=== PATIENT | female | born 1965 | race Caucasian/White ===

== ENCOUNTER 2019-11-16 15:04 | Emergency (ER) | payer OTHER, SELFPAY ==
[2019-11-16 15:05] VITALS: BP 159/101; PULSE 77; RESP 17; TEMP 36.4; O2SAT 96; BMI 50.4
[2019-11-16 15:19] VITALS: BP 182/79; PULSE 70; RESP 16
--- NOTE | 2019-11-16 15:34 | ED_ITS ---
HPI - Back Pain/Injury General: Chief Complaint: Back Pain/Injury Stated Complaint: back pain Time Seen by Provider: 11/16/19 15:34 Source: patient Mode of arrival: ambulatory Limitations: no limitations History of Present Illness: HPI Narrative: Patient is 54-year-old female who presents to ED today with complaints of lower and right-sided back pain that initially began a week ago; patient states back pain seems to be intermittent and seems to be worse with certain positions; patient states sometimes with walking she will get a very sharp pain that almost takes her to her knees; she does not have any chest pain, shortness of breath, lightheadedness, dizziness; pain seems to radiate down into her right buttock; she denies numbness, tingling, loss of sensation, weakness to her lower extremities; she denies urinary retention or bowel incontinence MD elicited complaint: back pain Onset (ago): day(s) Timing: intermittent Quality: sharp Location: lumbar spine and right lower back Radiation: buttocks Exacerbating factors: movement and deep breaths Associated symptoms: Reports no associated symptoms PFSH ED PFSH: Statuses (acute, chronic, etc) shown below reflect problem list status as previously entered and may not be historically accurate Social History Smoking and tobacco status: never smoked Course Vital Signs: Vital signs: Vital Signs Temperature 97.5 F L 11/16/19 15:05 Pulse Rate 74 11/16/19 16:22 Respiratory Rate 20 H 11/16/19 16:22 Blood Pressure 149/83 11/16/19 16:22 Pulse Oximetry 94 11/16/19 16:22 Discharge Plan Discharge Patient Disposition: Home, Self-Care Clinical Impression: Strain of lumbar region Qualifiers: Encounter type: initial encounter Qualified Code(s): S39.012A - Strain of muscle, fascia and tendon of lower back, initial encounter Condition: Stable Prescriptions: New prednisone 10 mg tablet 60 mg PO DAILY 5 Days Qty: 30 RF: 0 tramadol 50 mg tablet 50 mg PO Q6H PRN (Reason: pain) Qty: 10 RF: 0 No Action carisoprodol 350 mg Tablet 350 mg PO QPM RF: 0 celecoxib 200 mg Capsule 200 mg PO DAILY RF: 0 cyclobenzaprine 10 mg Tablet 10 mg PO TID PRN (Reason: Spasms) RF: 0 warfarin 6 mg Tablet See Rx Instructions .ROUTE .COMPLEX RF: 0 omeprazole 10 mg Capsule,Delayed Release(Dr/Ec) 10 mg PO DAILY RF: 0 montelukast 10 mg Tablet 10 mg PO QPM RF: 0 gvbnqzuhhq-jvbwbftaf-jhgoondlj 40-10-25 mg Tablet 1 tab PO DAILY RF: 0 Discharge Orders: Discharge Order (Routine); Ordered 11/16/19 Ordered By: Jade Ferrer Referrals: Sherri Samuel MD [Primary Care Provider] - Discharge Diet: Usual diet Discharge Activity: Increase activity as tolerated Activity Restrictions/Additional Instructions: Follow up with primary care for continued pain. Coding Level of Care Code ED Glass Designer for Gabriela Parson
[2019-11-16 16:22] VITALS: BP 149/83; PULSE 74; RESP 20; O2SAT 94
[2019-11-16] MEDS: ketorolac 60 mg/2 mL INJ IM (16:41)
[2019-11-16] MEDS: dexamethasone 10 mg/mL INJ 8 MG IM (16:41)
[2019-11-16 17:13] VITALS: BP 163/90; PULSE 78; RESP 18; TEMP 36.7; O2SAT 96
== END 2019-11-16 17:05 | disposition home or self-care (01) ==
PROVIDERS: Emergency Provider Physician Assistant; Family Provider Family Medicine; PCP Family Medicine
DX: S39.012A Strain of muscle, fascia and tendon of lower back, initial encounter (principal); Z79.01 Long term (current) use of anticoagulants; X58.XXXA Exposure to other specified factors, initial encounter
CPT/HCPCS: 96372; 99281; J1100; J1885

== ENCOUNTER 2019-11-22 15:16 | Emergency (ER) | payer OTHER, SELFPAY ==
[2019-11-22 15:20] VITALS: BP 177/115; PULSE 81; RESP 20; TEMP 36.4; O2SAT 94; BMI 52.0
--- NOTE | 2019-11-22 15:28 | ED_ITS ---
Entered by Concepcion Nicholas, acting as scribe for Pina Garcia MD, [facility] [place] Nov 22, 2019 15:16 HPI - Weakness General: Chief complaint: Weakness Stated complaint: weakness Time Seen by Provider: 11/22/19 15:29 Source: patient and RN notes reviewed Mode of arrival: ambulatory Limitations: no limitations History of Present Illness: HPI Narrative: 54 yo female presents to ED with complaints of weakness. She said she had an episode of heavy shoulders, weakness in her upper half, sweating, and nauseated. She said this lasted approximately 30 minutes. Her dad has history of heart problems. She denies any other symptoms. The patient takes a blood thinner for a blood clot in her L leg. The patient was in the ER last week for back pain and spasms. Complaint: generalized weakness Onset (ago): minute(s) (30) Duration: improved Location: other (upper half) Migration: none Severity: moderate Quality: aching and other (heaviness) Relieving factors: none Exacerbating factors: none Associated symptoms: Reports chest pain and nausea; Denies chills, dysuria, fever(s) or headache(s) Review of Systems General: Reports: 10 or more systems reviewed and unremarkable except in HPI and below Const: Denies: fever, chills or body aches Eyes: Reports: blind spots; Denies: change in vision or blurry vision ENMT: Denies: throat pain, enlarged tonsils, painful swallowing, hoarseness, mouth pain or swelling of lips/tongue Card: Reports: chest pain; Denies: palpitations, irregular heart rhythm, edema or swelling of feet/ankles Resp: Denies: shortness of breath, productive cough or non-productive cough GI: Reports: nausea : Denies: flank pain, difficulty urinating, painful urination, urinary frequency, urinary urgency or urinary hesitancy Musc: Reports: extremity pain (left shoulder), joint pain (left shoulder) and limited range of motion; Denies: neck pain, back pain or extremity swelling Skin/Breast: Denies: rash, itching or redness Neuro: Denies: headache, numbness in extremities or weakness in extremities Endo: Denies: excessive urination, excessive thirst or tired all the time PFSH ED PFSH: Statuses (acute, chronic, etc) shown below reflect problem list status as previously entered and may not be historically accurate Social History Smoking and tobacco status: never smoked Physical Exam Const: COMMON NORMALS: no apparent distress, average body habitus, oriented x3, no limitations, healthy appearing, alert and well nourished HENMT: COMMON NORMALS: normocephalic, head/scalp atraumatic and moist oral mucous membranes HEAD & SCALP: normocephalic and atraumatic Eye: COMMON NORMALS: PERRL, EOMs intact bilaterally, conjunctivae normal and no scleral icterus CONJUNCTIVA: Yes conjunctivae normal PUPIL: Yes PERRL Neck/C-Spine: COMMON NORMALS: full ROM, supple, no meningeal signs, no JVD and no carotid bruits Chest: COMMONS NORMALS: inspection of chest normal and palpation of chest normal Resp: COMMON NORMALS: normal respiratory effort, no retractions, no use of accessory muscles, clear to auscultation bilaterally and percussion normal AUSCULTATION: clear to auscultation bilaterally PERCUSSION: percussion normal Cardio: COMMON NORMALS: no JVD, regular rate, regular rhythm, S1 normal heart sound, S2 normal heart sound, no gallops, no clicks, no murmurs, no rub and peripheral pulses 2+ throughout RATE: regular rate RHYTHM: regular rhythm HEART SOUNDS: S1 normal and S2 normal PERIPHERAL PULSES: pulses 2+ throughout GI: COMMON NORMALS: normal to inspection, nondistended, normoactive bowel sounds, soft to palpation, non-tender, no hepatosplenomegaly, no masses and no bruits PALPATION: Yes soft and Yes no hepatosplenomegaly : COMMON NORMALS: Yes no CVA tenderness BLADDER/KIDNEY EXAM: Yes no CVA tenderness Back/Pelvis: COMMON NORMALS: no CVA tenderness LUMBAR SPINE/LOWER BACK: Yes paraspinal muscle tenderness, Yes paraspinal muscle spasm, No straight leg raise positive right and No straight leg raise positive left Extremity: COMMON NORMALS: normal to inspection, full ROM, normal capillary refill, no calf tenderness and no pedal edema Neuro: COMMON NORMALS: oriented x3 SENSORIUM/ORIENTATION: Yes alert MENINGEAL SIGNS: Yes no meningeal signs Skin: COMMON NORMALS: no rashes or lesions noted, no wounds, skin turgor normal, no jaundice, no petechiae and no mottling GENERAL SKIN EXAM: no rashes or lesions noted and turgor normal Course Vital Signs: Vital signs: Vital Signs Temperature 97.5 F L 11/22/19 15:20 Pulse Rate 72 11/22/19 18:02 Respiratory Rate 18 11/22/19 15:59 Blood Pressure 139/81 11/22/19 18:02 Pulse Oximetry 93 11/22/19 18:02 MDM - Weakness MDM Narrative: Medical decision making narrative: 54 year old female patient who presents to the ED with non specific symptoms of bilateral shoulder weakness. No pain. Evaluation was unremarkable. She was seen recently for similar symptoms. She is advised to f/u with her PCP for further work up Lab Data: Labs: Lab Results 11/22/19 11/22/19 11/22/19 Range/Units 16:25 16:25 16:25 WBC 11.1 H (4.0-10.0) 10^3/ uL RBC 4.71 (4.1-5.3) 10^6/u L Hgb 13.6 (11.5-15.3) g/dL Hct 42.0 (37.0-47.0) % MCV 89.2 (81-99) fL MCH 28.9 (28.0-34.0) pg MCHC 32.4 (30.0-36.0) g/dL RDW 13.9 (12.1-15.1) % Plt Count 223 (130-400) 10^3/c mm MPV 10.0 (7.4-10.4) fL Neut % (Auto) 59.8 % Lymph % (Auto) 30.6 % Kern % (Auto) 7.2 % Eos % (Auto) 1.6 % Baso % (Auto) 0.4 % Neut # (Auto) 6.7 (1.8-7.7) 10^3/u L Lymph # (Auto) 3.4 (0.8-4.8) 10^3/u L Kern # (Auto) 0.8 (0.2-0.9) 10^3/u L Eos # (Auto) 0.2 (0.0-0.8) 10^3/u L Baso # (Auto) 0.0 (0.0-0.1) 10^3/u L Nucleated RBC % (a uto) 0 % Nucleated RBCs # 0.0 /100WBC Sodium 138 (136-145) mmol/L Potassium 3.5 (3.5-5.1) mmol/L Chloride 95 L (98-107) mmol/L Carbon Dioxide 30 H (22-29) mmol/L Anion Gap 16.5 (5-19) BUN 19 (6-20) mg/dL Creatinine 0.7 (0.5-0.9) mg/dL GFR Calculation 86.6 L (90-130) mL/min Glucose 147 H (74-109) mg/dL Calcium 9.5 (8.5-10.5) mg/dL Total Bilirubin 0.3 (0.15-1.2) mg/dL AST 14 (0-32) U/L ALT 19 (0-33) U/L Alkaline Phosphata se 73 (35-105) IU/L Troponin T Baselin e 8 (0-10) ng/mL Total Protein 6.9 (6.6-8.7) g/dL Albumin 3.8 (3.5-5.2) g/dL Globulin 3.1 (1.3-4.6) g/dL Imaging Data^: CXR: Radiologist's impression: [address] [address] XRay Report Signed Patient: Emma Gee #: [id number] : 1965Acct#:[id number] Age/Sex: 54 / FADM Date: 11/22/19 Loc: ERRoom/Bed: Attending Dr: Ordering Provider/Ordering MD: Pina Garcia MD, [facility] [place] Date of Service: 11/22/19 Procedure(s): XR chest 2V* [id number] Accession Number(s): [id number] Report Number: [id number] PROCEDURE INFORMATION: Exam: XR Chest, 2 Views Exam date and time: 11/22/2019 4:08 PM Age: 54 years old Clinical indication: Other: Sudden weakness; Additional info: Chest pain TECHNIQUE: Imaging protocol: XR of the chest Views: 2 views. COMPARISON: No relevant prior studies available. FINDINGS: Lungs: Unremarkable. No consolidation. There is poor inspiration with volume loss. Pleural space: Unremarkable. No pleural effusion. No pneumothorax. Heart/Mediastinum: Unremarkable. No cardiomegaly. Bones/joints: Unremarkable. XR/XR chest 2V* [id number] IMPRESSION: No acute findings. Dictated By:Alejandra Celestin Signed By:Roque Celestin Date/Time:11/22/19 1721 DD/ EKG Data^: EKG 1: Attestation: I personally reviewed and interpreted this EKG as follows: EKG interpretation date: 11/22/19 EKG interpretation time: 16:17 Prior EKG tracings: not available for review Interpretation: Normal sinus rhythm. Heart rate 73. No ST changes. Normal axis EKG 2: Attestation: I personally reviewed and interpreted this EKG as follows: EKG interpretation date: 11/22/19 EKG interpretation time: 17:57 Prior EKG tracings: available for review Interpretation: Unchanged from earlier today Discharge Plan Discharge Patient Disposition: Home, Self-Care Clinical Impression: Weakness Condition: Stable Prescriptions: Continued carisoprodol 350 mg Tablet 350 mg PO QPM RF: 0 celecoxib 200 mg Capsule 200 mg PO DAILY RF: 0 cyclobenzaprine 10 mg Tablet 10 mg PO TID PRN (Reason: Spasms) RF: 0 warfarin 6 mg Tablet See Rx Instructions .ROUTE .COMPLEX RF: 0 omeprazole 10 mg Capsule,Delayed Release(Dr/Ec) 10 mg PO DAILY RF: 0 montelukast 10 mg Tablet 10 mg PO QPM RF: 0 gzxnfamuen-gdwnbthbm-zqwgeahzr 40-10-25 mg Tablet 1 tab PO DAILY RF: 0 tramadol 50 mg tablet 50 mg PO Q6H PRN (Reason: pain) Qty: 10 RF: 0 Discharge Orders: Discharge Order (Routine); Ordered 11/22/19 Ordered By: Pina Garcia Referrals: Sherri Samuel MD [Primary Care Provider] - 1-3 days Patient Instructions: Weakness (ED) Activity Restrictions/Additional Instructions: Return for any new or worsening symptoms. Follow-up with your primary care provider within 3 days. Discharge Date/Time: 11/22/19 18:36 Coding Level of Care Code ED Rn Transfer for Chg Fwd Exam Problem Focused The documentation recorded by the scribe, Nicholas,Concepcion R, accurately reflects the service I personally performed and the decisions made by me, Pina Garcia MD, [facility] Nov 22, 2019 15:16
[2019-11-22 15:59] VITALS: BP 148/86; PULSE 74; RESP 18; O2SAT 93
--- NOTE | 2019-11-22 16:07 | ECG_ITS ---
Measurements Intervals [place] Rate: 73 P: 141 ID: 163 QRS: 77 QRSD: 104 T: 33 QT: 374 QTc: 413 ECTOPIC ATRIAL RHYTHM LEFT ATRIAL ENLARGEMENT [-0.15mV P WAVE IN V1/V2] POSSIBLE INFERIOR MYOCARDIAL INFARCTION , PROBABLY OLD [30 ms Q WAVE IN II/aVF] No previous ECG available for comparison Electronically Signed On 11-22-2019 16:25:26 MILLINERY DEPARTMENT MANAGER by Gilma Cordova M.D. [email or web address]
--- NOTE | 2019-11-22 16:07 | XRR_ITS ---
PROCEDURE INFORMATION: Exam: XR Chest, 2 Views Exam date and time: 11/22/2019 4:08 PM Age: 54 years old Clinical indication: Other: Sudden weakness; Additional info: Chest pain TECHNIQUE: Imaging protocol: XR of the chest Views: 2 views. COMPARISON: No relevant prior studies available. FINDINGS: Lungs: Unremarkable. No consolidation. There is poor inspiration with volume loss. Pleural space: Unremarkable. No pleural effusion. No pneumothorax. Heart/Mediastinum: Unremarkable. No cardiomegaly. Bones/joints: Unremarkable. XR/XR chest 2V* [id number] IMPRESSION: No acute findings.
[2019-11-22 16:45] LABS: Basophils % 0.4 %; Eosinophils # 0.2 10^3/uL (0.0-0.8); Eosinophils % 1.6 %; Hemoglobin 13.6 g/dL (11.5-15.3); Lymphocytes # 3.4 10^3/uL (0.8-4.8); Lymphocytes % 30.6 %; Mean Corpuscular HGB Conc 32.4 g/dL (30.0-36.0); Mean Corpuscular Hemoglobin 28.9 pg (28.0-34.0); Mean Corpuscular Volume 89.2 fL (81-99); Monocytes # 0.8 10^3/uL (0.2-0.9); Monocytes % 7.2 %; Neutrophils # 6.7 10^3/uL (1.8-7.7); Neutrophils % 59.8 %; Nucleated Red Blood Cells % 0 %; Platelet Count 223 10^3/cmm (130-400); Red Blood Count 4.71 10^6/uL (4.1-5.3); Red Cell Distribution Width 13.9 % (12.1-15.1); White Blood Count 11.1 10^3/uL (4.0-10.0)
[2019-11-22 16:59] LABS: Alanine Aminotransferase 19 U/L (0-33); Albumin Level 3.8 g/dL (3.5-5.2); Alkaline Phosphatase 73 IU/L (35-105); Anion Gap 16.5 (5-19); Aspartate Amino Transferase 14 U/L (0-32); Blood Urea Nitrogen 19 mg/dL (6-20); Calcium 9.5 mg/dL (8.5-10.5); Carbon Dioxide 30 mmol/L (22-29); Chloride 95 mmol/L (98-107); Globulin 3.1 g/dL (1.3-4.6); Glomerular Filtration Rate 86.6 mL/min (90-130); Glucose 147 mg/dL (74-109); Potassium 3.5 mmol/L (3.5-5.1); Sodium 138 mmol/L (136-145); Total Bilirubin 0.3 mg/dL (0.15-1.2); Total Protein 6.9 g/dL (6.6-8.7)
[2019-11-22 17:01] LABS: Troponin(5th) Baseline 8 ng/mL (0-10)
[2019-11-22 18:02] VITALS: BP 139/81; PULSE 72; O2SAT 93
--- NOTE | 2019-11-22 18:07 | ECG_ITS ---
Measurements Intervals [place] Rate: 68 P: 56 AL: 171 QRS: 40 QRSD: 103 T: 35 QT: 386 QTc: 411 SINUS RHYTHM WARNING: DATA QUALITY MAY AFFECT INTERPRETATION Compared to ECG 11/22/2019 16:16:46 Ectopic atrial rhythm no longer present Atrial abnormality no longer present Myocardial infarct finding no longer present Electronically Signed On 11-23-2019 20:27:43 OCEAN FORWARDER by Gilma Cordova M.D. [id number] f
[2019-11-22 18:34] VITALS: BP 139/81; PULSE 66; RESP 18; O2SAT 95
== END 2019-11-22 18:36 | disposition home or self-care (01) ==
PROVIDERS: Emergency Provider Family Medicine; Family Provider Family Medicine; PCP Family Medicine
DX: R53.1 Weakness (principal); Z79.01 Long term (current) use of anticoagulants
CPT/HCPCS: 71046; 80053; 84484; 85025; 93005; 99282; 99283

== ENCOUNTER 2019-11-24 16:02 | Outpatient (CLI) | payer OTHER, SELFPAY ==
--- NOTE | 2019-11-24 | XR_ITS ---
WS: [id number] LUMBAR SPINE: 3 VIEWS TECHNIQUE: AP, lateral and L5-S1 spot. HISTORY: BACK PAIN 3 WEEKS COMPARISON: None available. Lumbar vertebra are normally aligned. Degenerative disc space narrowing and osteophytes in the lower thoracic and lumbar spine. No fracture s are identified. Mild facet arthropathy throughout the lumbar spine. Mild bilateral SI joint arthritis. Prior cholecystectomy. XR/XR lumbar spine 2-3V* [id number] IMPRESSION: 1. Mild multilevel lumbar spondylosis. 2. No fracture.
== END 2019-11-24 16:03 | disposition home or self-care (01) ==
LOC: RADOUTREAD 11-25 10:26
PROVIDERS: Family Provider Family Medicine; PCP Family Medicine; Visit Provider Family Medicine
DX: Z76.89 Persons encountering health services in other specified circumstances (principal)

== ENCOUNTER 2020-04-02 08:51 | Outpatient (CLI) | payer OTHER, SELFPAY ==
--- NOTE | 2020-04-02 08:54 | MM_ITS ---
WS: [id number] BILATERAL DIGITAL SCREENING MAMMOGRAPHY WITH CAD CLINICAL INFORMATION: SCREENING HISTORY: Screening mammogram. No current complaints. COMPARISON: October 31, 2018 TECHNIQUE: Bilateral CC and MLO views. FINDINGS: The breasts are composed of heterogeneous fibroglandular density tissue, which can limit the detectio n of small underlying mass lesions. No suspicious mass, asymmetry, calcifications, or architectural d istortion. No evidence of malignancy. MM/[place] [id number] IMPRESSION: BI-RADS: 1-Negative FOLLOW UP: 1 Year Follow-up Recommend return to annual screening mammography.
== END 2020-04-02 08:52 | disposition home or self-care (01) ==
LOC: RADSHAW 08:53
PROVIDERS: PCP Family Medicine; Visit Provider Family Medicine
DX: Z12.31 Encounter for screening mammogram for malignant neoplasm of breast (principal)
CPT/HCPCS: 77067

== ENCOUNTER → 2020-04-08 16:21 | Outpatient (BNVA) | payer OTHER, SELFPAY | PROVIDERS: PCP Family Medicine; Visit Provider Nurse Practitioner Women's Health | DX: N91.2 Amenorrhea, unspecified (principal) | CPT/HCPCS: 83001; 84450 ==

== ENCOUNTER 2021-01-12 07:46 | Outpatient (CLI) | payer OTHER, SELFPAY ==
--- NOTE | 2021-01-12 08:07 | CT_ITS ---
WS: [id number] CTA HEAD TECHNIQUE: Contrast enhanced CTA of the head with coronal and sagittal reformatted images and maximum intensity projection (MIP) images. NASCET criteria utilized. CLINICAL INFORMATION: CHRONIC MAXILLARY SINSITIS, CHRONIC SPHENOIDAL SINUSITIS COMPARISON: None. DLP: 1427.[address] scans at [facility] use at least one of these dose optimization techniques: automat ed exposure control; mA and/or kV adjustment per patient size (includes targeted exams where dose is matched to clinical indication); or iterative reconstruction. FINDINGS: Presellar variant of sphenoid sinus pneumatization with extension posteriorly to the anteri or margin of the sella. This is best visualized on the sagittal imaging. Complete opacification of th e right sphenoid sinus and sphenoid sinus ostia. Associated dehiscence with unroofing of the cavernou s carotid artery along the posterior wall of the sphenoid sinus. Unroofing and dehiscence along the i nferior sphenoid sinus as well as the superior sphenoid sinus. Similar-appearing variation involving the left sphenoid sinus with unroofing and dehiscence of the traversing cavernous carotid artery. Lef t sphenoid sinus is well aerated. Opacification and expansion of the right sphenoid sinus ostia with mucosal thickening in the right et hmoid air cells posteriorly. Left sphenoid sinus is well aerated. Left sphenoid sinus ostia is patent . Large anterior nasal septal perforation measuring 4 cm. Maxillary sinuses are well aerated with mil d polypoid mucosal thickening measuring 6 mm on the right and 7 mm on the left. Ostiomeatal units are patent. Mild narrowing of the right greater than left ostiomeatal units. Tiny left Mesfin cell. Smal l leftward directed nasal septal spur posteriorly. Mastoid air cells are well aerated. Sphenoid sinuses are well aerated. Frontal ethmoidal recesses are patent. Normal davis-white differentiation. Mild small vessel changes. Mild parenchymal volume loss. No extra axial fluid collections. Visualized posterior nasopharynx is normal. INTRACRANIAL CTA: Both ICAs are patent at the skull base. Hypoplastic left A1 segment. Normal anterior to indicating ar apryl. Normal vascularity to the HENRI and MCA territories bilaterally. No evidence of high-grade proxim al stenosis. Distal vertebral arteries are patent. Basilar artery is patent. Persistent left MUD BOSS. CT/CT angio head [id number] IMPRESSION: 1. Prepatellar pneumatization of the sphenoid sinus with dehiscence and unroof ing of the traversing cavernous carotid artery bilaterally described above. Opa cification of the right sphenoid sinus. Please note variation if consideration of ESS 2. Opacification right sphenoid sinus with expansion of the right sphenoid sin us ostia. Mild mucosal thickening in the right posterior ethmoid air cells. Lef t sphenoid sinus is patent. 3. Large anterior nasal septal perforation measuring 4 cm in AP dimension on t he axial imaging. 4. Mild polypoid mucosal thickening in the maxillary sinuses. Above. 5. Mastoid air cells well aerated. 6. No flow-limiting intracranial stenosis.
[2021-01-12] MEDS: iohexol 350 mg/mL 100 mL Btl IV (08:54)
== END 2021-01-12 07:47 | disposition home or self-care (01) ==
LOC: RADWPI 07:50
PROVIDERS: PCP Family Medicine; Visit Provider Otolaryngology
DX: J32.0 Chronic maxillary sinusitis (principal); J32.3 Chronic sphenoidal sinusitis; J34.89 Other specified disorders of nose and nasal sinuses
CPT/HCPCS: 70496; Q9967

== ENCOUNTER 2021-06-10 06:57 | Outpatient (CLI) | payer OTHER, SELFPAY ==
[2021-06-10 07:32] VITALS: BP 128/76; PULSE 88; RESP 16; TEMP 37.2; O2SAT 93; BMI 53.8
[2021-06-10] MEDS: ondansetron 2 mg/ML SDV 2 mL 4 MG IVP (07:55)
[2021-06-10 08:02] VITALS: BP 118/77; PULSE 81; RESP 18; O2SAT 92
[2021-06-10 08:46] VITALS: BP 115/74; PULSE 77; RESP 20; TEMP 36.8
== END 2021-06-10 06:58 | disposition home or self-care (01) ==
PROVIDERS: PCP Family Medicine; Visit Provider Family Medicine
DX: U07.1 COVID-19 (principal)
CPT/HCPCS: 96365; J2405

== ENCOUNTER → 2021-08-03 09:11 | Outpatient (BNVA) | payer OTHER, SELFPAY | PROVIDERS: PCP Family Medicine; Visit Provider Nurse Practitioner Women's Health | DX: Z01.419 Encounter for gynecological examination (general) (routine) without abnormal findings (principal) | CPT/HCPCS: 87624 ==

== ENCOUNTER 2021-09-28 10:07 | Outpatient (CLI) | payer OTHER, SELFPAY ==
--- NOTE | 2021-09-28 10:12 | MM_ITS ---
WS: [id number] Exam: [place] [id number] Date/Time of Exam: 09/28/2021 10:20 AM Reason For Exam: SCREENING VIEWS: MLO and CC views both breasts. Comparison made with prior exam of 04/09/2017, 10/31/2018 and 04/02/2020. Findings: There was no sign of mass, architectural distortion or suspicious calcification in either breast. Sc attered fibroglandular densities MM/[place] [id number] Impression: BI-RADS: 2-Benign FOLLOW-UP: 1 Year Follow-up This mammogram was also analyzed by the Computer Aided Detection System R2 Imag e Last Marker.
== END 2021-09-28 10:08 | disposition home or self-care (01) ==
LOC: RADSHAW 10:10
PROVIDERS: PCP Family Medicine; Visit Provider Family Medicine
DX: Z12.31 Encounter for screening mammogram for malignant neoplasm of breast (principal)
CPT/HCPCS: 77067

== ENCOUNTER → 2021-10-05 09:01 | Outpatient (BNVA) | payer OTHER, SELFPAY | PROVIDERS: PCP Family Medicine; Visit Provider Nurse Practitioner Women's Health | DX: E66.01 Morbid (severe) obesity due to excess calories (principal) | CPT/HCPCS: 76830 ==

== ENCOUNTER → 2022-08-21 07:54 | Outpatient (BNVA) | payer OTHER, SELFPAY | PROVIDERS: PCP Family Medicine; Visit Provider Nurse Practitioner Women's Health | DX: N95.0 Postmenopausal bleeding (principal) | CPT/HCPCS: 76830 ==

== ENCOUNTER → 2022-08-25 11:32 | Outpatient (BNVA) | payer OTHER, SELFPAY | PROVIDERS: PCP Family Medicine; Visit Provider Nurse Practitioner Women's Health | DX: N95.0 Postmenopausal bleeding (principal) | CPT/HCPCS: 88305 ==

== ENCOUNTER 2022-10-11 14:38 | Outpatient (CLI) | payer OTHER, SELFPAY ==
--- NOTE | 2022-10-11 14:47 | MM_ITS ---
WS: [id number] VIEWS: MLO and CC views both breasts. 3D digital tomosynthesis is also included in this exam. Comparison made with prior exam of 08/21/2014, 03/02/2016, 04/09/2017, 10/31/2018, 04/02/2020, 09/28/2021. . Findings: There was no sign of mass, architectural distortion or suspicious calcification in either breast. Sta ble appearing nodular densities in both breasts. Heterogeneously dense MM/[place] [id number] Impression: BI-RADS: 2-Benign FOLLOW-UP: 1 Year Follow-up This mammogram was also analyzed by the Computer Aided Detection System R2 Imag e Assistant Professor Surgical Technology.
== END 2022-10-11 14:39 | disposition home or self-care (01) ==
LOC: RAD 14:38
PROVIDERS: PCP Family Medicine; Visit Provider Nurse Practitioner Women's Health
DX: Z12.31 Encounter for screening mammogram for malignant neoplasm of breast (principal)
CPT/HCPCS: 77063; 77067

== ENCOUNTER 2023-11-09 14:39 | Outpatient (CLI) | payer OTHER, SELFPAY ==
--- NOTE | 2023-11-09 14:43 | MM_ITS ---
WS: [id number] BILATERAL 3D TOMOSYNTHESIS DIGITAL SCREENING MAMMOGRAPHY WITH CAD CLINICAL INFORMATION: Z12.39 - Encounter for other screening for malignant neop... HISTORY: Screening mammogram. No current complaints. COMPARISON: 2021 TECHNIQUE: Bilateral CC and MLO views. FINDINGS: Scattered fibroglandular densities bilaterally. No suspicious focal mass, asymmetry, calcifications, or architectural distortion. No evidence of malignancy. A few scattered benign calcifications. IMPRESSION: MM/[place] [id number] BI-RADS: 2-Benign FOLLOW UP: 1 Year Follow-up Recommend return to annual screening mammography.
--- NOTE | 2023-11-09 14:45 | XR_ITS ---
WS: [id number] DEXA (DUAL ENERGY X-RAY ABSORPTIOMETRY) Bone mineral density was performed using a DialedIN machine. HISTORY: ASYMPTOMATIC MENOPAUSAL STATE COMPARISON: None available. Left forearm BMD: 0.898 g/cm2. T score: 0.2 Z score: 1.2 Total hip BMD: Left: 1.133 g/cm2. T score: 1.0 Z score: 1.1 Right: 1.142 g/cm2. T score: 1.1 Z score: 1.2 10 year probability of a major osteoporotic fracture is 5.5%. IMPRESSION: NORMAL BONE MINERAL DENSITY based upon the WHO classification for females.
== END 2023-11-09 14:40 | disposition home or self-care (01) ==
LOC: RAD 14:39
PROVIDERS: PCP Family Medicine; Visit Provider Nurse Practitioner Women's Health
DX: Z12.31 Encounter for screening mammogram for malignant neoplasm of breast; R92.323 Mammographic fibroglandular density, bilateral breasts; R92.1 Mammographic calcification found on diagnostic imaging of breast; Z78.0 Asymptomatic menopausal state
CPT/HCPCS: 77063; 77067; 77080

== ENCOUNTER 2023-11-09 14:39 | Outpatient (CLI) | payer OTHER, SELFPAY | END 2023-11-09 14:40 | disposition home or self-care (01) | LOC: RAD 02-05 10:18 | PROVIDERS: PCP Family Medicine; Visit Provider Nurse Practitioner Women's Health | DX: Z78.0 Asymptomatic menopausal state (principal); Z13.820 Encounter for screening for osteoporosis | CPT/HCPCS: 77080 ==

== ENCOUNTER 2024-05-08 09:20 | Outpatient (CLI) | payer OTHER, SELFPAY ==
--- NOTE | 2024-05-08 09:30 | USCV_ITS ---
Emma Gee Age: 59 Gender: F : 1965 Exam Date: 05/08/2024 09:26 Ordering Phys: Shanae Marcial NP Technologist: Exam Location: [facility] [place] Indication: HISTORY: PROCEDURES: Bilateral duplex Venous Insufficiency study of the Deep and Superficial systems was carried out according to normal protocol with the patient in supine positon for deep system and dependent position for the superficial system. FINDINGS: All deep veins demonstrated compressibility without evidence of intraluminal thrombus or increased echogenicity. Spectral analysis of Doppler signals demonstrates normal response to compression maneuvers indicating patency without obstruction. Reflux determinations were made with the patient in the dependent position, the weight being on the contralateral leg. No notable reflux was seen at this time. The veins were found to be easily compressible with spontaneous blood flow. Non pulsatile flow pattern. CONCLUSIONS No evidence of DVT in the above-mentioned identifiable veins. No significant venous reflux either in the deep or in the superficial veins, based on the above findings Dr Gilma Cordova MD [facility] (Electronically Signed) Final Date: 09 May 2024 00:58 S
== END 2024-05-08 09:21 | disposition home or self-care (01) ==
LOC: RAD 09:21
PROVIDERS: PCP Family Medicine; Visit Provider Nurse Practitioner Family
DX: E11.622 Type 2 diabetes mellitus with other skin ulcer (principal); L98.499 Non-pressure chronic ulcer of skin of other sites with unspecified severity
CPT/HCPCS: 93970

== ENCOUNTER 2024-05-14 09:22 | Outpatient (CLI) | payer OTHER, SELFPAY ==
--- NOTE | 2024-05-14 09:30 | USCV_ITS ---
Emma Gee Age: 59 Gender: F : 1965 Exam Date: 05/14/2024 09:29 Ordering Phys: Shanae Marcial NP Technologist: TORIN Exam Location: [facility] [place] Indication: Ulcers Risk Factors: Previous Vascular Surgery: RIGHT LEFT BP: 131.0 / 70.00 BP: 129.0/ 80.00 0 0 Waveform Velocity (cm/s) Velocity (cm/s) Waveform Triphasic 129.2 Iliac Prox 82.8 Triphasic Triphasic 118.2 Iliac Mid 89.3 Triphasic Triphasic 132.7 Iliac Distal 84.2 Triphasic Triphasic 131.0 PROFESSOR OF ENGLISH 109.0 Triphasic Triphasic 133.0 SFA Prox 122.0 Triphasic Triphasic 105.0 SFA Mid 104.0 Triphasic Triphasic SFA Dist Triphasic 98.0 96.0 Triphasic 97.0 POP 78.0 Triphasic Triphasic 113.0 INSULATION BOARD COATER OPERATOR 71.0 Triphasic Triphasic 98.0 DPA 65.0 Triphasic 1.3 KOFFI 1.3 FINDINGS Minimal intimal thickening in the iliac and femoral arteries bilaterally. Normal artery Doppler waveforms and velocities. Resting KOFFI 1.3 bilaterally. CONCLUSIONS 1. Normal resting ABIs bilaterally suggesting no significant arterial obstruction 2. Minimal intimal thickening bilaterally in the iliac and femoral arteries. No unstable plaques or lesions noted Dr Gilma Cordova MD [facility] (Electronically Signed) Final Date: 19 May 2024 20:47 S
== END 2024-05-14 09:23 | disposition home or self-care (01) ==
LOC: RAD 09:23
PROVIDERS: PCP Family Medicine; Visit Provider Nurse Practitioner Family
DX: E11.622 Type 2 diabetes mellitus with other skin ulcer (principal); L98.499 Non-pressure chronic ulcer of skin of other sites with unspecified severity
CPT/HCPCS: 93925

== ENCOUNTER 2024-11-24 09:48 | Outpatient (CLI) | payer OTHER, SELFPAY ==
--- NOTE | 2024-11-24 | MM_ITS ---
WS: [id number] BILATERAL SCREENING DIGITAL TOMOSYNTHESIS MAMMOGRAM WITH CAD HISTORY: ANNUAL SCREENING COMPARISON: 11/09/2023, 10/11/2022 Bilateral CC and MLO views with tomosynthesis and synthetic mammography submitted. Computer aided det ection analyzed. Breast composition: The breasts are heterogeneously dense, which may obscure small masses. No suspici ous masses, microcalcifications or architectural distortion. Scattered bilateral calcifications. Stab le asymmetries. MM/MM scr BI tomosynthesis [id number] IMPRESSION: BI-RADS: 2 - Benign FOLLOW UP: 1 Year Follow-up
== END 2024-11-24 09:49 | disposition home or self-care (01) ==
LOC: RAD 09:51
PROVIDERS: PCP Family Medicine; Visit Provider Family Medicine
DX: Z12.31 Encounter for screening mammogram for malignant neoplasm of breast (principal); R92.333 Mammographic heterogeneous density, bilateral breasts; R92.1 Mammographic calcification found on diagnostic imaging of breast; N64.89 Other specified disorders of breast
CPT/HCPCS: 77063; 77067

== ENCOUNTER → 2024-12-04 11:22 | Outpatient (BNVA) | payer OTHER, SELFPAY | PROVIDERS: PCP Family Medicine; Visit Provider Nurse Practitioner Women's Health | DX: Z13.29 Encounter for screening for other suspected endocrine disorder (principal); Z78.0 Asymptomatic menopausal state | CPT/HCPCS: 82306; 84443; 87624 ==

== ENCOUNTER → 2025-02-05 11:06 | Outpatient (BNVA) | payer OTHER, SELFPAY | PROVIDERS: PCP Family Medicine; Visit Provider Nurse Practitioner Women's Health | DX: E55.9 Vitamin D deficiency, unspecified (principal) | CPT/HCPCS: 82306 ==